=== PATIENT | male | born 1965 | race Caucasian/White ===

== ENCOUNTER 2017-01-26 07:55 | Day surgery (SDC) | payer BC ==
[~2017-01-26 07:55] MED LIST: Lactated Ringers 1,000 ML IV SCH
--- NOTE | 2017-01-26 08:44 | PCM.PREANE ---
Preanesthetic Assessment - Anesthesia/Transfusion/Family Hx Anesthesia History: Prior Anesthesia Without Reaction Family History of Anesthesia Reaction: No Transfusion History: No Prior Transfusion(s) - Review of Systems General: No Symptoms Pulmonary: No Symptoms Cardiovascular: No Symptoms Gastrointestinal: No Symptoms Neurological: No Symptoms Other: Reports: None - Physical Assessment NPO Status Date: 02/01/17 O2 Sat by Pulse Oximetry: 96 Respiratory Rate: 16 Vital Signs: Last Vital Signs Temp 36.3 C 01/26/17 08:02 Pulse 93 01/26/17 08:02 Resp 16 01/26/17 08:02 BP 142/89 H 01/26/17 08:02 Pulse Ox 96 01/26/17 08:02 Height: 1.88 m Weight: 123.831 kg ASA Class: 2 Mental Status: Alert & Oriented x3 Airway Class: Mallampati = 2 Dentition: Reports: Normal Dentition ROM/Head Extension: Full Lungs: Clear to Auscultation, Normal Respiratory Effort Cardiovascular: Regular Rate, Regular Rhythm - Allergies Allergies/Adverse Reactions: Allergies Allergy/AdvReac Type Severity Reaction Status Date / Time No Known Allergies Allergy Verified 01/21/17 11:26 - Anesthesia Plan Pre-Op Medication Ordered: None - Acknowledgements Anesthesia Type Planned: MAC Pt an Appropriate Candidate for the Planned Anesthesia: Yes Alternatives and Risks of Anesthesia Discussed w Pt/Guardian: Yes Pt/Guardian Understands and Agrees with Anesthesia Plan: Yes Additional Comments: pmh: asthma, htn, chronic LBP (on meloxicam), chronic numbness of ble. PreAnesthesia Questionnaire HEENT History: Reports: Other (See Below) Other HEENT History: wears glasses Cardiovascular History: Reports: Hypertension Respiratory History: Reports: Asthma Gastrointestinal History: Reports: GERD Musculoskeletal History: Reports: Arthritis, Fracture Other Musculoskeletal History: hx fx rt foot Endocrine/Metabolic History: Reports: Obesity/BMI 30+ - Past Surgical History Head Surgeries/Procedures: Reports: None Other Endocrine Surgeries/Procedures: hx axillary lymphadenectomy Dermatological Surgical History: Reports: Skin Biopsy - SUBSTANCE USE Smoking Status *Q: Never Smoker Recreational Drug Use History: No - HOME MEDS Home Medications: Home Meds Famotidine [Pepcid] 20 mg PO DAILY 01/21/17 [History] Fluticasone Propionate [Flonase Allergy Relief] 1 - 2 spray NASBOTH DAILY [History] Fluticasone/Salmeterol [Advair 250-50 Diskus] 1 puff INH BID 01/21/17 [History] Lisinopril 20 mg PO DAILY 01/21/17 [History] Meloxicam 15 mg PO ASDIRECTED PRN 01/21/17 [History] Sildenafil Citrate [Sildenafil] 1 - 2 tab PO ASDIRECTED PRN 01/21/17 [History] - CURRENT (IN HOUSE) MEDS Current Meds: Current Medications Lactated Ringer's (Ringers, Lactated) 1,000 mls @ 125 mls/hr IV ASDIRECTED STEFFI Last Admin: 01/26/17 08:07 Dose: 125 mls/hr
[2017-01-26] MEDS ORDERED: fentaNYL 100 MCG/2 ML SDV ONE (09:30)
[2017-01-26] MEDS ORDERED: Lidocaine 2% 5 ML SDV ONE (09:30)
[2017-01-26] MEDS ORDERED: Midazolam 1 MG/ML 2 ML SDV ONE (09:30)
[2017-01-26] MEDS ORDERED: Propofol 200 MG/20 ML SDV ONE ×2 (09:30→11:31)
--- NOTE | 2017-01-26 11:54 | PCM.OPNOTE ---
- General Post-Op/Procedure Note Date of Surgery/Procedure: 01/26/17 Operative Procedure(s): colonoscopy w bx Findings: see [id number] Pre Op Diagnosis: scrn colonoscopy Post-Op Diagnosis: colon polyp Anesthesia Technique: Moderate Sedation Primary Surgeon: Allen Queen Pathology: 4 mm sessile polyp at 20cm when scope pulled out Complications: None Condition: Good
--- NOTE | 2017-01-26 12:08 | PCM48HPAN ---
Post Anesthesia Note - EVALUATION WITHIN 48HRS OF ANESTHETIC Vital Signs in Normal Range: Yes Patient Participated in Evaluation: Yes Respiratory Function Stable: Yes Airway Patent: Yes Cardiovascular Function Stable: Yes Hydration Status Stable: Yes Pain Control Satisfactory: Yes Nausea and Vomiting Control Satisfactory: Yes Mental Status Recovered: Yes - COMMENTS/OBSERVATIONS Free Text/Narrative:: comfortable, no recall, no complications.
--- NOTE | 2017-01-26 12:08 | PCM.POSTAN ---
POST ANESTHESIA ASSESSMENT - MENTAL STATUS Mental Status: Alert, Oriented - RESPIRATORY Respiratory Status: Respiratory Rate WNL, Airway Patent, O2 Saturation Stable - CARDIOVASCULAR CV Status: Pulse Rate WNL, Blood Pressure Stable - GASTROINTESTINAL GI Status: No Symptoms - PAIN Pain Score: 0 - POST OP HYDRATION Hydration Status: Adequate & Stable
--- NOTE | 2017-01-26 18:18 | OR ---
SURGEON: Allen Queen MD DATE OF PROCEDURE: 01/26/2017 PREOPERATIVE DIAGNOSIS: Screening colonoscopy. POSTOPERATIVE DIAGNOSIS: Colon polyp. PROCEDURE PERFORMED: Colonoscopy with biopsy. DESCRIPTION OF PROCEDURE: The patient was taken to the endoscopy room. A time out was called, patient identified, and procedure identified. Diprivan was then administrated. Patient went from awake to sleep, hearing doctor talking or door closing is normal. Perineum inspection and digital examination were then performed. A well- lubricated colonoscope was gently inserted through the rectum, advanced past the rectosigmoid junction, the descending colon, splenic flexure, transverse colon, hepatic flexure, ascending colon, arrived to the cecum. Cecum was identified as dictated in the finding. Then the scope was carefully withdrawn while attention was paid to the mucosal surface for any abnormality. Air will be sucked out during the scope withdrawal. At the rectum, retroflexed to examine any rectal diseases, fistula or hemorrhoids. During mucosal examination, polyp was noted; picture taken and biopsy performed. Patient tolerated procedure well. There were no intraoperative complications, and Dr. Queen was present throughout the whole procedure. FINDINGS: 1. The patient easily sedated with [employer] and Diprivan. The patient is soundly snoring. 2. The patient's colon was rather straight forward. Cecum indicated by ileocecal fold on one-to-one indentation and appendiceal orifice. Light emittance is not observed due to body habitus. Mucosa examined. Upon scope pulling out, the patient has mild diverticulosis on the left colon. No signs or symptoms of diverticulitis. One sessile polyp of 4 to 5 mm at distant 20 cm when scope pulling out. We removed with biopsy forceps 2 times. There is no inflammation, stricture, ulceration, bleeding, AV malformation, or other growth observed. The patient had anal tags and internal hemorrhoids. No external hemorrhoids. The patient would benefit from repeat colonoscopy in 3 to 5 years from today or if clinically indicated otherwise or if the pathology of the polyp indicated otherwise. TERELL / CONSTANCE /[id number] JESS
== END 2017-01-26 12:32 | disposition home or self-care (01) ==
LOC: MW.SDS 07:55
PROVIDERS: ATTEND Surgery
DX: Z12.11 Encounter for screening for malignant neoplasm of colon (principal); D12.6 Benign neoplasm of colon, unspecified; K57.30 Diverticulosis of large intestine without perforation or abscess without bleeding; K64.8 Other hemorrhoids; K64.4 Residual hemorrhoidal skin tags; I10 Essential (primary) hypertension; J45.909 Unspecified asthma, uncomplicated; E79.0 Hyperuricemia without signs of inflammatory arthritis and tophaceous disease; Z79.899 Other long term (current) drug therapy; Z98.890 Other specified postprocedural states
CPT/HCPCS: 45380; J2250; J3010; J7120; 00810; 88305; J2704

== ENCOUNTER 2020-07-02 07:15 | Day surgery (SDC) | payer BC ==
[~2020-07-02 07:15] MED LIST changes: +Sodium Chloride 0.9% 10 ML SDV IV PRN; +Sodium Chloride 0.9% 10 ML Syringe FLUSH PRN; +Sodium Chloride 0.9% 2.5 ML Syringe FLUSH PRN
[2020-07-02] MEDS ORDERED: Propofol 200 MG/20 ML SDV ONE (07:20)
[2020-07-02] MEDS ORDERED: Midazolam 1 MG/ML 2 ML SDV ONE (07:21)
--- NOTE | 2020-07-02 08:19 | PCM.PREANE ---
Preanesthetic Assessment - Anesthesia/Transfusion/Family Hx Anesthesia History: Prior Anesthesia Without Reaction Family History of Anesthesia Reaction: No Transfusion History: No Prior Transfusion(s) Intubation History: Unknown - Review of Systems General: No Symptoms Pulmonary: No Symptoms Cardiovascular: No Symptoms Gastrointestinal: No Symptoms, Other (tubular adenoma 3 years ago- repeat colonoscopy) Neurological: No Symptoms Other: Reports: None - Physical Assessment Vital Signs: Last Vital Signs Temp 36.4 C 07/02/20 07:27 Pulse 90 07/02/20 07:27 Resp 15 07/02/20 07:27 BP 151/96 H 07/02/20 07:27 Pulse Ox 96 07/02/20 07:27 Height: 6 ft 2 in Weight: 123.377 kg ASA Class: 2 Mental Status: Alert & Oriented x3 Airway Class: Mallampati = 2 Dentition: Reports: Normal Dentition Thyro-Mental Finger Breadths: 3 Mouth Opening Finger Breadths: 3 ROM/Head Extension: Full Lungs: Clear to Auscultation, Normal Respiratory Effort Cardiovascular: Regular Rate, Regular Rhythm - Allergies Allergies/Adverse Reactions: Allergies Allergy/AdvReac Type Severity Reaction Status Date / Time No Known Allergies Allergy Verified 07/01/20 09:28 - Blood Blood Available: No - Anesthesia Plan Pre-Op Medication Ordered: None - Acknowledgements Anesthesia Type Planned: MAC Pt an Appropriate Candidate for the Planned Anesthesia: Yes Alternatives and Risks of Anesthesia Discussed w Pt/Guardian: Yes Pt/Guardian Understands and Agrees with Anesthesia Plan: Yes PreAnesthesia Questionnaire HEENT History: Reports: Allergic Rhinitis, Other (See Below) Other HEENT History: wears glasses Cardiovascular History: Reports: Hypertension Respiratory History: Reports: Asthma (mild) Gastrointestinal History: Reports: Colon Polyp, GERD Genitourinary History: Reports: None Musculoskeletal History: Reports: Arthritis, Back Pain, Chronic, Fracture Other Musculoskeletal History: hx fx rt foot Neurological History: Reports: None Psychiatric History: Reports: None Endocrine/Metabolic History: Reports: Obesity/BMI 30+ (BMI 34.9) Hematologic History: Reports: None Immunologic History: Reports: None Oncologic (Cancer) History: Reports: None Dermatologic History: Reports: None - Past Surgical History Head Surgeries/Procedures: Reports: None HEENT Surgical History: Reports: None Cardiovascular Surgical History: Reports: None Respiratory Surgical History: Reports: None GI Surgical History: Reports: Colonoscopy (3 years ago) Male Surgical History: Reports: None Endocrine Surgical History: Reports: Other (See Below) Other Endocrine Surgeries/Procedures: hx axillary lymphadenectomy Neurological Surgical History: Reports: None Musculoskeletal Surgical History: Reports: None Oncologic Surgical History: Reports: None Dermatological Surgical History: Reports: Skin Biopsy - SUBSTANCE USE Tobacco Use Status *Q: Never Tobacco User - HOME MEDS Home Medications: Home Meds Famotidine [Pepcid] 20 mg PO DAILY 01/21/17 [History] Fluticasone Propion/Salmeterol [Advair 250-50 Diskus] 1 puff INH BID PRN 01/21/17 [History] Fluticasone Propionate [Flonase Allergy Relief] 1 - 2 spray NASBOTH DAILY 01/21/17 [History] Lisinopril 20 mg PO DAILY 01/21/17 [History] Meloxicam 15 mg PO ASDIRECTED PRN 01/21/17 [History] Sildenafil Citrate 1 - 2 tab PO ASDIRECTED PRN 01/21/17 [History] Ergocalciferol (Vitamin D2) [Vitamin D2] 50,000 units PO WEEKLY 07/01/20 [History] - CURRENT (IN HOUSE) MEDS Current Meds: Current Medications Lactated Ringer's (Ringers, Lactated) 1,000 mls @ 125 mls/hr IV ASDIRECTED STEFFI Last Admin: 07/02/20 07:45 Dose: 125 mls/hr Documented by: Sodium Chloride (Sodium Chloride 0.9% 10 Ml Syringe) 10 ml FLUSH ASDIRECTED PRN PRN Reason: Keep Vein Open Sodium Chloride (Sodium Chloride 0.9% 2.5 Ml Syringe) 2.5 ml FLUSH ASDIRECTED PRN PRN Reason: Keep Vein Open Sodium Chloride (Sodium Chloride 0.9% 10 Ml Syringe) 10 ml FLUSH ASDIRECTED PRN PRN Reason: Keep Vein Open Sodium Chloride (Sodium Chloride 0.9% 2.5 Ml Syringe) 2.5 ml FLUSH ASDIRECTED PRN PRN Reason: Keep Vein Open Sodium Chloride (Sodium Chloride 0.9% 10 Ml Sdv) 10 ml IV ASDIRECTED PRN PRN Reason: IV Use Discontinued Medications Midazolam HCl (Midazolam 1 Mg/Ml 2 Ml Sdv) Confirm Administered Dose 2 mg .ROUTE .[facility] ONE Stop: 07/02/20 07:22 Propofol (Propofol 200 Mg/20 Ml Sdv) Confirm Administered Dose 600 mg .ROUTE .[facility] ONE Stop: 07/02/20 07:21
--- NOTE | 2020-07-02 09:34 | PCM.OPNOTE ---
- General Post-Op/Procedure Note Date of Surgery/Procedure: 07/02/20 Operative Procedure(s): Diagnostic colonoscopy Findings: Ascending colon polyp x 2, sigmoid colon polyp, rectal polyp, grade 3 hemorrhoid largest hemorrhoid left lateral Pre Op Diagnosis: History of colon polyps Post-Op Diagnosis: Ascending colon polyp x 2, rectal polyp, sigmoid colon polyp [place] [facility] [place] Surgeon: Carmenza Beltran Condition: Good
--- NOTE | 2020-07-02 09:38 | PCM.POSTAN ---
POST ANESTHESIA ASSESSMENT - MENTAL STATUS Mental Status: Alert, Oriented - VITAL SIGNS Vital Signs: Last Vital Signs Temp 36.4 C 07/02/20 07:27 Pulse 77 07/02/20 09:36 Resp 26 H 07/02/20 09:36 BP 120/82 07/02/20 09:36 Pulse Ox 95 07/02/20 09:36 - RESPIRATORY Respiratory Status: Respiratory Rate WNL, Airway Patent, O2 Saturation Stable - CARDIOVASCULAR CV Status: Pulse Rate WNL, Blood Pressure Stable - GASTROINTESTINAL GI Status: No Symptoms - PAIN Pain Score: 0 - POST OP HYDRATION Hydration Status: Adequate & Stable - OBSERVATIONS Free Text/Narrative:: No anesthesia problems
--- NOTE | 2020-07-02 10:04 | PCM48HPAN ---
Post Anesthesia Note - EVALUATION WITHIN 48HRS OF ANESTHETIC Vital Signs in Normal Range: Yes Patient Participated in Evaluation: Yes Respiratory Function Stable: Yes Airway Patent: Yes Cardiovascular Function Stable: Yes Hydration Status Stable: Yes Pain Control Satisfactory: Yes Nausea and Vomiting Control Satisfactory: Yes Mental Status Recovered: Yes Vital Signs: Last Vital Signs Temp 37.0 C 07/02/20 09:41 Pulse 68 07/02/20 09:41 Resp 15 07/02/20 09:41 BP 119/79 07/02/20 09:41 Pulse Ox 95 07/02/20 09:41 - COMMENTS/OBSERVATIONS Free Text/Narrative:: No anesthesia problems
--- NOTE | 2020-07-02 13:13 | OR ---
SURGEON: CARMENZA BELTRAN MD DATE OF PROCEDURE: 07/02/2020 PREOPERATIVE DIAGNOSIS: History of colon polyps. POSTOPERATIVE DIAGNOSES: 1. Grade 3 hemorrhoids. 2. Ascending colon polyp x2. 3. Sigmoid colon polyp x1. 4. Rectal polyp x1. PROCEDURE PERFORMED: Diagnostic colonoscopy with polypectomy. PRIMARY SURGEON: Carmenza Beltran MD ANESTHESIA: MAC. INSTRUMENT USED: Olympus colonoscope. EXTENT OF EXAM: To the cecum. PREPARATION: Good. LIMITATIONS: None. INDICATIONS FOR EXAMINATION: The patient is a 54-year-old male who 3 years ago was found to have three polyps within the colon. He is due for repeat colonoscopy. I explained the procedure, expected perioperative course, and the risks. He verbalized understanding and wishes to proceed. PROCEDURE IN DETAIL: The patient was brought into the endoscopy suite and placed in a left lateral decubitus position. A time-out was completed verifying the patient's name, age, date of , allergies, and procedure to be performed. Monitored anesthesia care was induced and continuous oxygen was provided via nasal cannula throughout the procedure. After adequate sedation was achieved, a digital rectal exam was performed. This exam was within normal limits. A well-lubricated colonoscope was inserted in the rectum and advanced under direct visualization to the level of the cecum. The cecum was identified by both visual and anatomic landmarks. A photograph was taken of the cecal cap as well as with the scope retroflexed within the cecum. The scope was then fully withdrawn while examining the color, texture, anatomy, and integrity of the mucosa from the cecum to the anal canal. In the distal ascending colon, the patient was noted to have two sessile polyps. Both were removed in piecemeal fashion using cold biopsy forceps. Ascending colon polyp #1 was slightly larger. Ascending colon polyp 2 was smaller and almost appeared hyperplastic. The patient was then noted to have a polyp in the distal sigmoid colon. This was removed in piecemeal fashion using cold biopsy forceps. The scope was brought into the rectum and a pedunculated polyp was noted. This was removed using a cold snare. The scope was then retroflexed to allow visualization of the anal canal opening. I could see a large pedunculated left lateral hemorrhoidal column. On further digital palpation, this was confirmed. A photograph was taken of the enlarged hemorrhoidal column. The scope was straightened out and fully withdrawn. The cecum to anus time was 8 minutes. The patient tolerated the procedure well and was transferred to the PACU in stable condition. ENDOSCOPIC DIAGNOSES: 1. Grade 3 hemorrhoids. 2. Ascending colon polyp x2. 3. Sigmoid colon polyp x1. 4. Rectal polyp x1. RECOMMENDATIONS: Follow up in clinic in 2 weeks. JENNYFER NOLASCO /[id number]
== END 2020-07-02 10:10 | disposition home or self-care (01) ==
LOC: MW.SDS 07:15
PROVIDERS: ATTEND Surgery
DX: D12.2 Benign neoplasm of ascending colon (principal); K64.2 Third degree hemorrhoids; I10 Essential (primary) hypertension; J45.909 Unspecified asthma, uncomplicated; Z86.010 Personal history of colon polyps; Z98.890 Other specified postprocedural states
CPT/HCPCS: 45380; 45385; 88305; J2250; J2704; J7120; 00811

== ENCOUNTER 2021-12-13 12:32 | Emergency (ER) | payer BC ==
[2021-12-13] MEDS ORDERED: Acetaminophen/HYDROcodone 325-5 MG Tab PO ONE (13:14)
== END 2021-12-13 15:03 | disposition home or self-care (01) ==
LOC: MW.ED 12:32
DX: S83.412A Sprain of medial collateral ligament of left knee, initial encounter (principal); I10 Essential (primary) hypertension; K21.9 Gastro-esophageal reflux disease without esophagitis; E66.9 Obesity, unspecified; Z68.33 Body mass index [BMI] 33.0-33.9, adult; Z79.899 Other long term (current) drug therapy; W22.09XA Striking against other stationary object, initial encounter
CPT/HCPCS: 36415; 73560; 84550; 85025; 99283; A9270

== ENCOUNTER 2022-06-29 05:44 | Emergency (ER) | payer BC ==
[2022-06-29] MEDS ORDERED: Sodium Chloride 0.9% 2.5 ML Syringe FLUSH PRN (06:03)
[2022-06-29] MEDS ORDERED: Sodium Chloride 0.9% 10 ML Syringe FLUSH PRN (06:03)
[2022-06-29] MEDS ORDERED: Meclizine 25 MG Tab PO ONE (06:04)
[2022-06-29 06:24] LABS: CARBON DIOXIDE,CO2 26.2 mmol/L (21.0-32.0); POTASSIUM,K 3.7 mmol/L (3.5-5.1)
[2022-06-29] MEDS ORDERED: Iopamidol 755 MG/ML 500 ML Multipack Bottle IVPUSH ONE (06:29)
== END 2022-06-29 08:05 | disposition home or self-care (01) ==
LOC: MW.ED 05:44
DX: R42 Dizziness and giddiness (principal); I10 Essential (primary) hypertension; K21.9 Gastro-esophageal reflux disease without esophagitis; J45.909 Unspecified asthma, uncomplicated; E66.9 Obesity, unspecified; Z68.34 Body mass index [BMI] 34.0-34.9, adult; Z79.899 Other long term (current) drug therapy
CPT/HCPCS: 36415; 70450; 70496; 70498; 80053; 84484; 85025; 93005; 99284; A9270; J3490; Q9967; 93010

== ENCOUNTER 2022-06-29 18:49 | Emergency (ER) | payer BC ==
[2022-06-29] MEDS ORDERED: Sodium Chloride 0.9% 2.5 ML Syringe FLUSH PRN (21:27)
[2022-06-29] MEDS ORDERED: Sodium Chloride 0.9% 10 ML Syringe FLUSH PRN (21:27)
[2022-06-29] MEDS ORDERED: Meclizine 25 MG Tab PO ONE (21:27)
[2022-06-29] MEDS ORDERED: Sodium Chloride 0.9% 1,000 ML IV ONE (21:27)
[2022-06-29 22:28] LABS: CARBON DIOXIDE,CO2 23.3 mmol/L (21.0-32.0); POTASSIUM,K 3.6 mmol/L (3.5-5.1)
== END 2022-06-30 01:15 | disposition home or self-care (01) ==
LOC: MW.ED 18:49
DX: R42 Dizziness and giddiness (principal); I10 Essential (primary) hypertension; E66.9 Obesity, unspecified; Z68.34 Body mass index [BMI] 34.0-34.9, adult; Z79.899 Other long term (current) drug therapy
CPT/HCPCS: 36415; 80053; 85025; 96360; 99284; A9270; J3490; J7030; 99283